=== PATIENT | male | born 1935 | race Caucasian/White ===

== ENCOUNTER 2016-10-26 09:20 | Emergency (ER) | payer MEDICARE, MEDICAID ==
[~2016-10-26] VITALS: Ht 172.7 cm; Wt 101.8 kg
[~2016-10-26 09:20] MED LIST: ALBU8.5H4 IH; ATRINH INH; BECL8.7A5 INH; CHOL100045 PO; FRSM80T PO; FURO40TA4 PO; GABA-502 PO; GLIM2TAB2 PO; LISI-571 PO; LOVA40TA PO; METF500T4 PO; PANT40TA2 PO; POLY17PO6 PO; SPIR25TA3 PO; TIOT18CA3 IH; WARF2.5T82 PO
[2016-10-26 09:28] VITALS: BP 123/68; RESP 18; O2SAT 97
--- NOTE | 2016-10-26 11:35 | ED.REPORT ---
HPI-General Illness Date of Service Oct 26, 2016 ED Provider: Emir Oliver PA-C Manuel is a 81-year-old male with a chief complaint of bloody nose. Patient reports getting blood from his left nostril beginning last night. He states that he noticed blood running out of his left nostril after he coughed. He reports this episode did not last very long, but he continues to have blood on the tissue when he blows his nose. Denies headache, blurred vision, chest pain , palpitations, dyspnea, wheezing, shortness of breath, vomiting. Patient reports taking Coumadin but does not know why. 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 Nursing Notes Stated Complaint: NOSE BLEEDING/BLOOD THINNERS Chief Complaint: ENT & Mouth Nursing Notes Reviewed: Yes Allergies: Coded Allergies: atenolol (Verified Allergy, Severe, Shortness of Breath, 10/16/16) Scheduled Beclomethasone Dipropionate (Qvar) 8.7 Gm Aer.w.adap 2 PUFF INH BID Cholecalciferol (Vitamin D3) (Vitamin D) 1,000 Unit Capsule 1,000 UNIT PO HS Furosemide (Furosemide) 80 Mg Tablet 80 MG PO DAILY Furosemide (Furosemide) 40 Mg Tablet 40 MG PO DAILY@14 Gabapentin (Gabapentin) 300 Mg Capsule 300-600 MG PO HS Glimepiride (Glimepiride) 2 Mg Tablet 2 MG PO DAILYAC Ipratropium [place] (Atrovent HFA) 200 Puff/12.9 Gm Inhaler 2 PUFF INH QID Lisinopril (Lisinopril) 5 Mg Tablet 5 MG PO BID Lovastatin (Lovastatin) 40 Mg Tablet 40 MG PO HS Metformin (Metformin) 500 Mg Tablet 1,000 MG PO MORNING Metformin (Metformin) 500 Mg Tablet 1,500 MG PO HS Pantoprazole DR (Protonix) 40 Mg Tablet 40 MG PO DAILY Spironolactone (Spironolactone) 25 Mg Tablet 25 MG PO DAILY Warfarin Sodium (Warfarin Sodium) 2.5 Mg Tablet 3.75 MG PO SuMoTuThFr@1700 Warfarin Sodium (Warfarin Sodium) 2.5 Mg Tablet 2.5 MG PO WeSa@1700 Scheduled PRN Albuterol HFA (Albuterol HFA) 8.5 Gm Hfa.aer.ad 2 PUFF IH Q4 PRN PRN For Shortness of Breath Polyethylene Glycol 3350 (Miralax) 17 Gm Powd.pack 17 GM PO DAILY PRN PRN For Constipation Tiotropium [place] (Spiriva) 18 Mcg Cap.w.dev 18 MCG IH DAILY PRN PRN For Shortness of Breath General Time Seen by MD: 11:20 Chief Complaint Other (nosebleed) Past Medical History Past Medical History Notes: PCP: Dr. Gamboa Past Medical History Cataracts Dysphagia Valvular Heart Disease Heart Murmur Obstructive Sleep Apnea Umbilical Hernia Osteoarthritis Reports: COPD, Congestive heart failure, Diabetes mellitus, Hypertension Reports: Atrial fibrillation, Thyroid disease Past Surgical History Reports: Tonsillectomy Reports: Carpal tunnel Smoking History Former Smoker Social History Alcohol Use: Denies alcohol use Drug Use: Denies drug use Other Social History: Local resident Ambulatory Status Independent Review of Systems Negative unless stated otherwise in history of present illness. Physical Exam General: Well developed, well nourished, no acute distress. Head: Atraumatic, normocephalic. Eyes: No scleral icterus or injection. No discharge. Vision grossly intact. Ears: Hearing obviously impaired. Pinna and tragus nontender with manipulation. External auditory canal patent, atraumatic and without discharge. Tympanic membrane corbett, shiny and translucent without fluid, bulging, retraction or perforation. Nose: Nares patent, noninjected without discharge or bleeding. No lesion noted on Kiesselbach plexus, no septal hematoma. Mouth/pharynx: No bleeding noted. Mucus membranes moist. Tonsils 2+ and symmetrical, uvula midline. Pharynx noninjected, no cobblestoning or discharge. Voice clear. Respiratory: Regular rate and rhythm. Breath sounds present, clear to auscultation and equal bilaterally. Cardiovascular: Irregularly irregular rate and rhythm. No murmur, gallop or rub appreciated. Skin: Warm and dry. Neurological: Grossly nonfocal. Psychological: alert and oriented. Speech appropriate, linear and logical. Behavior appropriate. Vital Signs Vital Signs Date Time Temp Pulse Resp B/P Pulse Ox O2 Delivery O2 Flow Rate FiO2 10/26/16 09:28 35.0 74 18 123/68 97 Room Air Initial VS: Reviewed, Vital signs normal Interpretation & Diagnostics Lab Results Interpretation Test 10/26/16 11:20 Prothrombin Time 25.9sec (8.1-12.5) Prothromb Time International Ratio 2.38ratio Re-Eval/Medical Decision Med Decision/Clinical Course This is an 81-year-old male presents with chief complaint nosebleed. He describes a brief nosebleed that started last night when he coughed. He became concerned because every hour so he blows nose and there was persistent blood on the tissue. On presentation there is no evidence of nosebleed either anterior or posterior. I cannot identify a specific lesion, however his description of a unilateral anterior bleed is reassuring. History and physical and labs are reassuring that he has not lost a significant amount of blood. PT/INR is within the therapeutic window. I believe he is stable and safe for discharge to home. Advised him not to blow his nose for a day or 2, follow up with his primary care provider and provided return precautions. Discharge & Departure Primary Impression: Epistaxis Discharge Condition All VS Reviewed: Yes Condition: Stable Patient Instructions: Epistaxis (ED) Additional Instructions: Evaluation in the emergency department for nosebleed. History and physical are reassuring that this has not been a dangerous nosebleed. There is no ongoing bleeding from the nose, and no bleeding noted in the back of the throat. We checked your prothrombin time, which is within the therapeutic window. Based on your history, and review of your vital signs I do not believe you have lost a significant amount of blood. Initial episode was probably triggered by the coughing as you described. Subsequent episodes were most likely caused by aggravating the injury when you blew your nose. Please do not blow your nose for the next day or 2, and allow the injury to heal. Follow-up with your primary care provider both to monitor your prothrombin time and to discuss your hearing loss. Return to the emergency department for any new or worsening symptoms including bleeding from the nose that will not stop, bleeding in the back of the throat, vomiting blood. Referrals: Page Gamboa MD (PCP) EDSupervising Provider for APC: Vasu Helms MD copies to: Page Gamboa MD, Seth PA-C Oct 26, 2016 11:34
[2016-10-26 11:58] LABS: INR 2.38 ratio
[2016-10-29] MEDS ORDERED: ASPI325T32 PO (10:06)
[2016-10-29] MEDS ORDERED: LEVO88TA4 PO (10:06)
[2016-10-29] MEDS ORDERED: FURO-128 PO (10:06)
[2016-10-29] MEDS ORDERED: WARF2.5T82 PO (10:06)
[2016-10-29] MEDS ORDERED: METF1000 PO (10:06)
[2016-10-29] MEDS ORDERED: ALBU8.5H2 INHALATION (10:06)
[2016-10-29] MEDS ORDERED: LISI-571 PO (10:06)
== END 2016-10-26 12:35 ==
LOC: SED 09:20
DX: R04.0 Epistaxis (principal); J44.9 Chronic obstructive pulmonary disease, unspecified; I50.9 Heart failure, unspecified; E11.9 Type 2 diabetes mellitus without complications; I10 Essential (primary) hypertension; I48.91 Unspecified atrial fibrillation; Z87.891 Personal history of nicotine dependence; Z88.8 Allergy status to other drugs, medicaments and biological substances; Z79.84 Long term (current) use of oral hypoglycemic drugs; Z79.01 Long term (current) use of anticoagulants

== ENCOUNTER 2016-11-03 08:16 | Day surgery (SDC) | payer MEDICARE, MEDICAID ==
[~2016-11-03] VITALS: Ht 172.7 cm; Wt 103.2 kg
[2016-11-03] VITALS (11 sets, daily range): BP systolic 101–146; BP diastolic 60–84; PULSE 68–131; RESP 14–20; O2SAT 89–99
[2016-11-03] MEDS: Lactated Ringer's 1,000 ML IV SCH ×2 (05:41→10:35)
[~2016-11-03 08:16] MED LIST changes: +ALBU8.5H2 INHALATION; +ASPI325T32 PO; +CeFAZolin 2 Gm/50 mL D5W IV Premix IV ONE; +FURO-128 PO; +LEVO88TA4 PO; +METF1000 PO
[2016-11-03] MEDS ORDERED: Rocuronium 10 mg/mL 5 mL Inj ONE (08:17)
[2016-11-03] MEDS ORDERED: MetoCLOpramide 5 mg/mL 2 mL Inj ONE (08:17)
[2016-11-03] MEDS ORDERED: Propofol 10,000 mCg/mL 20 mL Inj ONE (08:17)
[2016-11-03] MEDS ORDERED: Esmolol 10,000 mCg/mL 10 mL Inj ONE (08:17)
[2016-11-03] MEDS ORDERED: Neostigmine 1 mg/mL 5 mL Inj ONE (08:17)
[2016-11-03] MEDS ORDERED: Glycopyrrolate 0.2 mg/mL 5 mL Inj ONE (08:17)
[2016-11-03] MEDS ORDERED: Ondansetron 2 mg/mL 2 mL Inj ONE (08:17)
[2016-11-03] MEDS ORDERED: fentaNYL-PF 50 mCg/mL 2 mL Inj ONE (08:17)
[2016-11-03 09:31] LABS: INR 1.02 ratio
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
[2016-11-03] MEDS ORDERED: Bupivacaine-MPF 0.5% 30 mL Inj INFILTRATE ONE (10:35)
[2016-11-03] MEDS ORDERED: Lactated Ringer's 1,000 ML IV SCH (10:52)
[2016-11-03] MEDS ORDERED: HYDROmorphone 1 mg/mL Inj IVPUSH PRN (10:55)
[2016-11-03] MEDS ORDERED: Dexamethasone 4 mg/mL Inj IVPUSH PRN (10:55)
[2016-11-03] MEDS ORDERED: EPHEDrine Sulfate 50 mg/mL Inj IVPUSH PRN (10:55)
[2016-11-03] MEDS ORDERED: Phenylephrine 10,000 mCg/mL Inj IVPUSH PRN (10:55)
[2016-11-03] MEDS ORDERED: Ondansetron 2 mg/mL 2 mL Inj IVPUSH PRN (10:55)
[2016-11-03] MEDS ORDERED: fentaNYL-PF 50 mCg/mL 2 mL Inj IVPUSH PRN (10:55)
[2016-11-03] MEDS ORDERED: MetoCLOpramide 5 mg/mL 2 mL Inj IVPUSH PRN (10:55)
[2016-11-03] MEDS ORDERED: MeTOProlol 1 mg/mL 5 mL Inj IVPUSH ONE (12:05)
[2016-11-03] MEDS ORDERED: HYDROcodone-APAP 5-325 mg Tablet PO PRN (12:10)
--- NOTE | 2016-11-03 12:39 | OP ---
[address] [address] OPERATIVE REPORT PATIENT: YVES ACEVES : 1935 MR#: [id number] ADMIT: 11/03/2016 JOB ID: [id number] DATE OF SURGERY: 11/03/2016 PREOPERATIVE DIAGNOSIS(ES): 1. Large incarcerated symptomatic umbilical hernia. 2. Incarcerated epigastric hernia. POSTOPERATIVE DIAGNOSIS(ES): 1. Large incarcerated symptomatic umbilical hernia. 2. Incarcerated epigastric hernia. PROCEDURES: 1. Repair of large incarcerated symptomatic umbilical hernia with mesh. 2. Repair of incarcerated epigastric hernia with mesh. SURGEON: Darnell Leonard MD. MARRIAGE COUNSELOR: Elvira Macdonald PA-C. INDICATIONS: An 81-year-old man who has had a progressively enlarging umbilical hernia causing localized discomfort. It was quite large, about the size of a half an orange and he had a palpable incarcerated epigastric hernia as well. After discussing options with the patient, it was elected to proceed with repair. FINDINGS: He had a large umbilical hernia containing omentum. The fascial defect was 3 cm. He had an incarcerated epigastric hernia containing preperitoneal fat measuring 1.5 cm. Both were repaired with mesh. DESCRIPTION OF PROCEDURE: At the beginning and end of the operation, SCOAP checklist was completed. An LMA anesthetic was induced. Using ChloraPrep, he was prepped and draped in usual fashion. The incisions were designed and infiltrated with 0.5% plain bupivacaine. The umbilical hernia was repaired first. A curvilinear infraumbilical incision was made. The umbilical skin was dissected off of the peritoneum. The peritoneum was then dissected away from the fascial margins using cautery. The sac was entered and as stated above, it contained incarcerated omentum. The sac and omentum were reduced and it was repaired and the defect was repaired with a 6.4 cm Ventralex mesh. It was sutured circumferentially with interrupted 2-0 PDS sutures. The umbilical skin was then sutured down to the fascial margins with interrupted 3-0 Vicryl. Excess umbilical skin was then excised and the subcutaneous space closed with interrupted 3-0 Vicryl. Attention was then turned to the epigastric hernia. The transverse incision was opened. The incarcerated hernia was identified. There was a large amount of preperitoneal fat that was incarcerated, and I amputated that using cautery as it otherwise would not have been able to be reduced. After doing that, I used a remnant piece from the tail of the umbilical mesh as an underlie, secured with interrupted 2-0 PDS and then the fascial margins were reapproximated with 2-0 PDS. Again, 3-0 Vicryl room was used to close the subcutaneous tissue. Skin incisions were closed with running subcuticular 4-0 Vicryl and Dermabond was applied. Estimated blood loss 15 cc. There are no apparent complications. There are no specimens. The final sponge, needle and instrument counts were announced as correct and the patient was returned to recovery in stable condition. Critical assistance was provided by Jennyfer Macdonald, which was necessary for the safe completion of this operation.
[2016-11-03] MEDS: Lactated Ringer's 500 ML IV PRN ×2 (12:57→14:30)
--- NOTE | 2016-11-03 14:52 | PCM.ANEP1 ---
Post Anesthesia Phase 1 PACU Phase 1 Assessment Vital Signs Vital Signs Date Time Temp Pulse Resp B/P Pulse Ox O2 Delivery O2 Flow Rate FiO2 11/03/16 13:55 36.8 68 16 146/79 97 Room Air 11/03/16 12:56 98 Nasal Cannula 2 11/03/16 12:55 36.2 79 16 111/74 89 Room Air 11/03/16 12:44 36.1 69 14 101/60 95 Room Air 11/03/16 12:40 82 17 112/70 94 Room Air 11/03/16 12:30 86 18 122/72 97 Nasal Cannula 3 11/03/16 12:15 36.0 110 18 97 Room Air 11/03/16 12:10 120 19 124/81 97 Simple Mask 7 11/03/16 12:05 131 20 109/79 97 Simple Mask 7 11/03/16 12:00 36.1 122/83 11/03/16 08:39 36.0 68 16 116/84 99 Room Air Anesthetic Administered: GA Level of Alertness: Awake, talking Pain: No Nausea or Vomiting: No Oxygen Delivery: Room Air Lungs: Normal Air Movement Tino Lewis MD Nov 03, 2016 14:52
--- NOTE | 2016-11-03 14:52 | PCM.ANEP2 ---
Post Anesthesia Evaluation ASA/CMS Post Anesthesia VS in Patient's Normal Range?: Yes Resp Stable; Airway Patent?: Yes CV Function & Hydration Stable: Yes Mental Status Recovered?: Yes Pain control Satisfactory?: Yes N/V Control Satisfactory?: Yes Tino Lewis MD Nov 03, 2016 14:52
== END 2016-11-03 23:59 | disposition home or self-care (01) ==
LOC: SAS 08:16
PROVIDERS: ATTEND Surgery
DX: K42.0 Umbilical hernia with obstruction, without gangrene (principal); K43.6 Other and unspecified ventral hernia with obstruction, without gangrene; I48.91 Unspecified atrial fibrillation; Z79.01 Long term (current) use of anticoagulants; I10 Essential (primary) hypertension; I50.9 Heart failure, unspecified; E11.9 Type 2 diabetes mellitus without complications; G47.33 Obstructive sleep apnea (adult) (pediatric); Z79.82 Long term (current) use of aspirin
CPT/HCPCS: 36415; 49572; 49587; 85610; C1781; J0690; J2405; J2710; J2765; J7120